=== PATIENT | male | born 1950 | race Hispanic/Latino ===

== ENCOUNTER 2018-05-12 09:59 | Day surgery (SDC) | payer BC ==
[2018-05-09 16:01] VITALS: BMI 32.5
[2018-05-12] MEDS ORDERED: Midazolam 2 MG/2 ML VIAL ONE ×2 (12:38→13:17)
[2018-05-12] MEDS ORDERED: Propofol 10 mg/ml Inj (20 ML) ONE ×2 (12:38→13:09)
[2018-05-12] MEDS ORDERED: Sodium Chloride 0.9% 1,000 ML IV SCH (14:00)
[2018-05-12 14:41] VITALS: BP 154/75; PULSE 62; RESP 16; TEMP 97.7; O2SAT 95
== END 2018-05-12 15:03 | disposition home or self-care (01) ==
LOC: ENDO 09:59
PROVIDERS: ATTEND Internal Medicine Gastroenterology
DX: K21.9 Gastro-esophageal reflux disease without esophagitis (principal); K29.30 Chronic superficial gastritis without bleeding; K22.8 Other specified diseases of esophagus; D12.3 Benign neoplasm of transverse colon; D12.2 Benign neoplasm of ascending colon; K63.5 Polyp of colon; K62.1 Rectal polyp; K64.8 Other hemorrhoids; N40.0 Benign prostatic hyperplasia without lower urinary tract symptoms; E11.9 Type 2 diabetes mellitus without complications; I25.10 Atherosclerotic heart disease of native coronary artery without angina pectoris; Z79.84 Long term (current) use of oral hypoglycemic drugs; Z95.5 Presence of coronary angioplasty implant and graft
CPT/HCPCS: 43239; 45385; 82948; 88305; 88312; 88342; J2001; J2250; J2704; J3010; J7030; J7040